=== PATIENT | male | born 1960 | race Caucasian/White ===

== ENCOUNTER → 2023-01-10 09:42 | Outpatient (BNVA) | payer MEDICARE, SELFPAY | PROVIDERS: PCP Family Medicine Adult Medicine; Visit Provider Family Medicine Adult Medicine | DX: E11.69 Type 2 diabetes mellitus with other specified complication (principal); E66.9 Obesity, unspecified; E03.9 Hypothyroidism, unspecified; I10 Essential (primary) hypertension; H61.22 Impacted cerumen, left ear; E78.5 Hyperlipidemia, unspecified; F32.A Depression, unspecified | CPT/HCPCS: 80053; 80061; 83036; 84443; 85025 ==

== ENCOUNTER → 2023-02-16 08:57 | Outpatient (BNVA) | payer MEDICARE, SELFPAY | PROVIDERS: PCP Family Medicine Adult Medicine; Referring Provider Family Medicine Adult Medicine; Visit Provider Internal Medicine | DX: E03.9 Hypothyroidism, unspecified; E11.22 Type 2 diabetes mellitus with diabetic chronic kidney disease; N18.30 Chronic kidney disease, stage 3 unspecified; E11.69 Type 2 diabetes mellitus with other specified complication; E78.5 Hyperlipidemia, unspecified; F32.A Depression, unspecified; M81.0 Age-related osteoporosis without current pathological fracture; E11.40 Type 2 diabetes mellitus with diabetic neuropathy, unspecified; Z79.890 Hormone replacement therapy; Z79.84 Long term (current) use of oral hypoglycemic drugs; Z79.85 Long-term (current) use of injectable non-insulin antidiabetic drugs | CPT/HCPCS: 99204 ==

== ENCOUNTER → 2023-05-12 09:19 | Outpatient (BNVA) | payer MEDICARE, SELFPAY | PROVIDERS: PCP Family Medicine Adult Medicine; Visit Provider Family Medicine Adult Medicine | DX: E11.9 Type 2 diabetes mellitus without complications (principal); E03.9 Hypothyroidism, unspecified | CPT/HCPCS: 80053; 80061; 82043; 83036; 84439; 84443 ==

== ENCOUNTER → 2023-05-18 09:20 | Outpatient (BNVA) | payer MEDICARE, MEDICAID, SELFPAY | PROVIDERS: PCP Family Medicine Adult Medicine; Visit Provider Internal Medicine | DX: E11.22 Type 2 diabetes mellitus with diabetic chronic kidney disease (principal); N18.30 Chronic kidney disease, stage 3 unspecified; E11.65 Type 2 diabetes mellitus with hyperglycemia; E11.69 Type 2 diabetes mellitus with other specified complication; E78.5 Hyperlipidemia, unspecified; E03.9 Hypothyroidism, unspecified; Z79.4 Long term (current) use of insulin; Z79.890 Hormone replacement therapy; Z79.84 Long term (current) use of oral hypoglycemic drugs | CPT/HCPCS: 99214 ==

== ENCOUNTER → 2023-07-24 07:55 | Outpatient (BNVA) | payer MEDICARE, MEDICAID, SELFPAY | PROVIDERS: PCP Family Medicine Adult Medicine; Visit Provider Nurse Practitioner Family | DX: D48.5 Neoplasm of uncertain behavior of skin (principal); Z80.8 Family history of malignant neoplasm of other organs or systems; L57.0 Actinic keratosis; L23.9 Allergic contact dermatitis, unspecified cause | CPT/HCPCS: 11102; 17000; 99203 ==

== ENCOUNTER → 2023-07-31 09:28 | Outpatient (BNVA) | payer MEDICARE, MEDICAID, SELFPAY | PROVIDERS: PCP Family Medicine Adult Medicine; Visit Provider Dermatology | DX: C44.319 Basal cell carcinoma of skin of other parts of face (principal) | CPT/HCPCS: 13132; 17311 ==

== ENCOUNTER → 2023-08-09 11:22 | Outpatient (BNVA) | payer MEDICARE, MEDICAID, SELFPAY | PROVIDERS: PCP Family Medicine Adult Medicine; Visit Provider Dermatology | DX: Z48.02 Encounter for removal of sutures (principal) | CPT/HCPCS: 99212 ==

== ENCOUNTER → 2023-08-28 08:13 | Outpatient (BNVA) | payer MEDICARE, MEDICAID, SELFPAY | PROVIDERS: PCP Family Medicine Adult Medicine; Visit Provider Internal Medicine | DX: E11.65 Type 2 diabetes mellitus with hyperglycemia (principal); E11.69 Type 2 diabetes mellitus with other specified complication; E78.5 Hyperlipidemia, unspecified; E03.9 Hypothyroidism, unspecified | CPT/HCPCS: 80053; 80061; 82043; 83036; 83721; 84439; 84443 ==

== ENCOUNTER → 2023-08-30 09:05 | Outpatient (BNVA) | payer MEDICARE, MEDICAID, SELFPAY | PROVIDERS: PCP Family Medicine Adult Medicine; Visit Provider Internal Medicine | DX: E11.69 Type 2 diabetes mellitus with other specified complication (principal); E66.9 Obesity, unspecified; E11.65 Type 2 diabetes mellitus with hyperglycemia; E11.22 Type 2 diabetes mellitus with diabetic chronic kidney disease; N18.30 Chronic kidney disease, stage 3 unspecified; E78.5 Hyperlipidemia, unspecified; E03.9 Hypothyroidism, unspecified; Z79.890 Hormone replacement therapy; Z79.4 Long term (current) use of insulin; Z79.84 Long term (current) use of oral hypoglycemic drugs; Z68.35 Body mass index [BMI] 35.0-35.9, adult | CPT/HCPCS: 99214 ==

== ENCOUNTER → 2023-11-23 08:20 | Outpatient (BNVA) | payer MEDICARE, MEDICAID, SELFPAY | PROVIDERS: PCP Family Medicine Adult Medicine; Visit Provider Internal Medicine | DX: E03.9 Hypothyroidism, unspecified (principal); E11.65 Type 2 diabetes mellitus with hyperglycemia; E11.22 Type 2 diabetes mellitus with diabetic chronic kidney disease; N18.30 Chronic kidney disease, stage 3 unspecified; E11.69 Type 2 diabetes mellitus with other specified complication; E78.5 Hyperlipidemia, unspecified; E66.9 Obesity, unspecified | CPT/HCPCS: 80053; 80061; 82043; 83036; 83721; 84439; 84443 ==

== ENCOUNTER → 2023-11-30 08:49 | Outpatient (BNVA) | payer MEDICARE, MEDICAID, SELFPAY | PROVIDERS: PCP Family Medicine Adult Medicine; Visit Provider Internal Medicine | DX: E11.69 Type 2 diabetes mellitus with other specified complication (principal); E66.9 Obesity, unspecified; Z68.35 Body mass index [BMI] 35.0-35.9, adult; E11.22 Type 2 diabetes mellitus with diabetic chronic kidney disease; N18.30 Chronic kidney disease, stage 3 unspecified; E03.9 Hypothyroidism, unspecified; E11.65 Type 2 diabetes mellitus with hyperglycemia; E78.5 Hyperlipidemia, unspecified; Z79.4 Long term (current) use of insulin; Z79.84 Long term (current) use of oral hypoglycemic drugs; Z79.890 Hormone replacement therapy | CPT/HCPCS: 99214 ==

== ENCOUNTER → 2023-12-12 11:02 | Outpatient (BNVA) | payer MEDICARE, MEDICAID, SELFPAY | PROVIDERS: PCP Family Medicine Adult Medicine; Visit Provider Nurse Practitioner Family | DX: L57.0 Actinic keratosis (principal); L82.0 Inflamed seborrheic keratosis; L57.8 Other skin changes due to chronic exposure to nonionizing radiation; D22.39 Melanocytic nevi of other parts of face; Z80.8 Family history of malignant neoplasm of other organs or systems | CPT/HCPCS: 17000; 17110; 99213 ==

== ENCOUNTER → 2024-01-16 12:05 | Outpatient (BNVA) | payer MEDICARE, MEDICAID, SELFPAY | PROVIDERS: PCP Family Medicine Adult Medicine; Visit Provider Internal Medicine | DX: E11.22 Type 2 diabetes mellitus with diabetic chronic kidney disease (principal); N18.30 Chronic kidney disease, stage 3 unspecified; E11.65 Type 2 diabetes mellitus with hyperglycemia; E11.69 Type 2 diabetes mellitus with other specified complication; E78.5 Hyperlipidemia, unspecified; E03.9 Hypothyroidism, unspecified; E66.9 Obesity, unspecified; Z68.34 Body mass index [BMI] 34.0-34.9, adult; Z79.4 Long term (current) use of insulin; Z79.890 Hormone replacement therapy; Z79.84 Long term (current) use of oral hypoglycemic drugs | CPT/HCPCS: 99214 ==

== ENCOUNTER → 2024-04-12 08:11 | Outpatient (BNVA) | payer MEDICARE, SELFPAY | PROVIDERS: PCP Family Medicine; Visit Provider Internal Medicine | DX: E11.65 Type 2 diabetes mellitus with hyperglycemia (principal); E66.9 Obesity, unspecified; E11.69 Type 2 diabetes mellitus with other specified complication; E03.9 Hypothyroidism, unspecified; E78.5 Hyperlipidemia, unspecified | CPT/HCPCS: 80053; 80061; 82043; 83036; 84439; 84443 ==

== ENCOUNTER → 2024-04-18 11:37 | Outpatient (BNVA) | payer MEDICARE, SELFPAY | PROVIDERS: PCP Family Medicine; Visit Provider Internal Medicine | DX: E11.69 Type 2 diabetes mellitus with other specified complication (principal); E66.9 Obesity, unspecified; E03.9 Hypothyroidism, unspecified; E11.22 Type 2 diabetes mellitus with diabetic chronic kidney disease; N18.30 Chronic kidney disease, stage 3 unspecified; E11.65 Type 2 diabetes mellitus with hyperglycemia; E78.5 Hyperlipidemia, unspecified | CPT/HCPCS: 99214 ==

== ENCOUNTER → 2024-06-11 11:20 | Outpatient (BNVA) | payer MEDICARE, SELFPAY | PROVIDERS: PCP Family Medicine; Visit Provider Nurse Practitioner Family | DX: L57.8 Other skin changes due to chronic exposure to nonionizing radiation (principal); D22.39 Melanocytic nevi of other parts of face; L21.8 Other seborrheic dermatitis; S50.912A Unspecified superficial injury of left forearm, initial encounter; X58.XXXA Exposure to other specified factors, initial encounter; Z08 Encounter for follow-up examination after completed treatment for malignant neoplasm; Z85.828 Personal history of other malignant neoplasm of skin; L57.0 Actinic keratosis | CPT/HCPCS: 17000; 99214 ==

== ENCOUNTER → 2024-07-11 08:15 | Outpatient (BNVA) | payer MEDICARE, SELFPAY | PROVIDERS: PCP Family Medicine; Visit Provider Family Medicine | DX: E11.22 Type 2 diabetes mellitus with diabetic chronic kidney disease (principal); N18.30 Chronic kidney disease, stage 3 unspecified; E11.69 Type 2 diabetes mellitus with other specified complication; E66.9 Obesity, unspecified; E03.9 Hypothyroidism, unspecified | CPT/HCPCS: 80053; 80061; 82043; 83036; 84439; 84443 ==

== ENCOUNTER → 2024-07-19 11:13 | Outpatient (BNVA) | payer MEDICARE, MEDICAID, SELFPAY | PROVIDERS: PCP Family Medicine; Visit Provider Internal Medicine | DX: E11.69 Type 2 diabetes mellitus with other specified complication (principal); E11.22 Type 2 diabetes mellitus with diabetic chronic kidney disease; E78.5 Hyperlipidemia, unspecified; E03.9 Hypothyroidism, unspecified; E11.65 Type 2 diabetes mellitus with hyperglycemia | CPT/HCPCS: 99214 ==

== ENCOUNTER → 2024-07-24 08:15 | Outpatient (BNVA) | payer MEDICARE, MEDICAID, SELFPAY | PROVIDERS: PCP Family Medicine; Visit Provider Internal Medicine | DX: E11.69 Type 2 diabetes mellitus with other specified complication (principal); E66.9 Obesity, unspecified | CPT/HCPCS: 82951; 84681; 86337; 86341 ==

== ENCOUNTER 2024-09-05 11:51 | Outpatient (CLI) | payer MEDICARE, SELFPAY ==
--- NOTE | 2024-09-05 12:02 | XR_ITS ---
WS: [email or web address] XR chest 2V* [id number] REASON FOR EXAM: chronic cough FINDINGS: No examination for comparison. Moderate tortuosity and ectasia of the thoracic aorta. Normal heart size. Calcified granulomatous disease in both hemithoraces. Eventration of the right hemidiaphragm. Chronic appearing interstitial lung opacities in the right lower lung with small lucencies. No definite acute pulmonary parenchymal or pleural abnormality. Mild levoscoliosis and moderate degenerative spondylosis of the mid thoracic spine. XR/XR chest 2V* [id number] IMPRESSION: Chronic appearing abnormality in the right lower lung which potentially could r epresent chronic bronchiectasis. No definite acute abnormality.
== END 2024-09-05 11:52 | disposition home or self-care (01) ==
PROVIDERS: PCP Family Medicine; Visit Provider Family Medicine
DX: R06.02 Shortness of breath (principal); R05.3 Chronic cough; I77.810 Thoracic aortic ectasia; D71 Functional disorders of polymorphonuclear neutrophils
CPT/HCPCS: 71046

== ENCOUNTER 2024-09-11 13:40 | Outpatient (CLI) | payer MEDICARE, SELFPAY ==
--- NOTE | 2024-09-11 14:00 | CT_ITS ---
WS: [id number] CT chest wo con [id number] HISTORY: bronchiectasis TECHNIQUE: Axial imaging performed through the thorax. Coronal and sagittal reformats are submitted. All CT scans at [facility] use at least one of these dose optimization techniques: automated exposure control; mA and/or kV adjustment per patient size (includes targeted exams where dose is matched to clinical indication); or iterative reconstruction. CONTRAST: None DLP: 713.83 mGy.cm COMPARISON: Chest radiograph 09/05/2024 Lungs and central airway: Lungs are clear. No pneumonia. No bronchiectasis at the RIGHT lung base. No pulmonary mass or nodule. Linear atelectasis in the RIGHT middle lobe. Pleura: Normal. No pleural effusion. Heart and pericardium: Normal size heart with no pericardial effusion. Mediastinum and yomi: No mediastinum or hilar adenopathy. Vessels: Normal size aorta. Pulmonary artery is slightly dilated. Chest wall and lower neck: No soft tissue masses. Upper abdomen: Small hiatal hernia. Mildly cirrhotic appearance of the liver. Benign granuloma RIGHT lobe of the liver. Numerous splenic varices are noted. There is visualized gallbladder is negative. Osseous structures: Deformity superior sternal body from a prior fracture. Schmorl's nodes defects at T12 and L1. Remote healed LEFT eighth lateral rib fracture. CT/CT chest wo con [id number] IMPRESSION: 1. No pulmonary mass or pneumonia. 2. No bronchiectasis at the RIGHT lung base as suggested on the recent chest r adiograph. 3. Mild pulmonary hypertension. 4. Splenic varices. Early cirrhotic appearance of the liver. 5. Remote healed sternal fracture.
== END 2024-09-11 13:41 | disposition home or self-care (01) ==
LOC: RAD 13:46
PROVIDERS: PCP Family Medicine; Visit Provider Family Medicine
DX: Z03.89 Encounter for observation for other suspected diseases and conditions ruled out (principal); I27.20 Pulmonary hypertension, unspecified
CPT/HCPCS: 71250

== ENCOUNTER → 2024-10-07 08:24 | Outpatient (BNVA) | payer MEDICARE, SELFPAY | PROVIDERS: PCP Family Medicine; Visit Provider Internal Medicine | DX: E11.22 Type 2 diabetes mellitus with diabetic chronic kidney disease (principal); N18.30 Chronic kidney disease, stage 3 unspecified; E11.69 Type 2 diabetes mellitus with other specified complication; E78.5 Hyperlipidemia, unspecified; E03.9 Hypothyroidism, unspecified | CPT/HCPCS: 80053; 80061; 82043; 83036 ==

== ENCOUNTER → 2024-10-11 11:17 | Outpatient (BNVA) | payer MEDICARE, SELFPAY | PROVIDERS: PCP Family Medicine; Visit Provider Internal Medicine | DX: E11.22 Type 2 diabetes mellitus with diabetic chronic kidney disease (principal); N18.30 Chronic kidney disease, stage 3 unspecified; E11.65 Type 2 diabetes mellitus with hyperglycemia; E11.69 Type 2 diabetes mellitus with other specified complication; E78.5 Hyperlipidemia, unspecified; E03.9 Hypothyroidism, unspecified | CPT/HCPCS: 99214 ==

== ENCOUNTER 2024-12-18 08:00 | Emergency (ER) | payer MEDICARE, MEDICAID, SELFPAY ==
--- OUTSIDE RECORDS SUMMARY | 2014-07-16 19:00 | XMS_ITS | Continuity of Care Document ---
Author Organization [facility] Address [address], [place] [address] Phone Care Team Providers Care Homemaker Companion Name Role Phone Celio Sen MD Unavailable Unavailable Procedures Procedure Date [facility] Inter Advance Directives Directive Yes / No Effective Date File Name No Information Encounters Encounter Description Practice Location Reason(s) For Visit Diagnoses Date Provider Providers Copied on Encounter [facility], [address], [place], [place], [place], [id number], tel:[phone] [facility] ER No Information [address] [facility]. [address], [place], [place], [place], [id number] , . tel: [phone] Referring Provider: Priscilla Simons, [address] [place], [address]. tel:[phone] Family History Family Member Type Diagnosis Age At Onset No Information Payers Payer name Insurance type Covered republican ID glenyskrunal silverio(s) [employer] BL [id number] Social History Type Description Quantity Date Captured Comments Sex Male Smoking Status No Information Chief Complaint And Reason For Visit No Information Reason For Referral Reason For Referral No Information History Of Present Illness Encounter Date Complaint History Of Prese nt Illness No Information Functional Status Date Functional Assessmen t No Information Instructions Date Instruction Additional Infor mation No Information Assessments Type Assessment Date No Information Patient Care Teams Name Effective Dates (start - stop) Status Members No Information
--- OUTSIDE RECORDS SUMMARY | 2022-02-08 10:55 | XMS_ITS | Continuity of Care Document ---
Author Organization [facility] Address [address] [place] [address] Phone Care Team Providers Care Bolt Maker Name Role Phone Unavailable Unavailable Unavailable Allergies, Adverse Reactions, Alerts Substance Reaction Status Criticality vancomycin Rash Active No Information Penicillins Rash Active No Information Medications Medication Instructions Dosage Effective Dates (start - stop) Status Comments No Drug Therapy Prescribed Procedures Procedure Date panoramic radiograph only Caries Risk Asssessment, High Risk Office Visit For Observation Advance Directives Directive Yes / No Effective Date File Name No Information Encounters Encounter Description Practice Location Reason(s) For Visit Diagnoses Date Provider Providers Copied on [facility], [address], [place], [id number], tel:[phone] [facility] No Information No Information [facility], [facility] [address], [place], [id number], tel:[phone] [facility] [address] DNT - Encounter for other specified special examinations No Information Family History Family Member Type Diagnosis Age At Onset No Information Payers Payer name Insurance type Covered constitution party ID Authoriza tion(s) O/P DENTI-KAUSHAL [id number] Social History Type Description Quantity Date Captured Comments Alcohol Use Details Unknown Caffeine Use Details Unknown Tobacco Use Status No Information Smoking Status No Information Sex Male Chief Complaint And Reason For Visit No Information Reason For Referral Reason For Referral No Information Plan Of Treatment Date Type Action Status Referral Ordered: Referrals: Dentistry - Prosthodontics. Evaluate and treat ordered History Of Present Illness Encounter Date Complaint History Of Prese nt Illness No Information Functional Status Date Functional Assessmen t No Information Medications Administered Medication Instructions Dosage Effective Dates (start - stop) Status Comments No Drug Therapy Prescribed Instructions Date Instruction Additional Infor mation No Information Assessments Type Assessment Date No Information Patient Care Teams Name Effective Dates (start - stop) Status Members No Information
[2024-12-18 08:19] VITALS: BP 116/70; PULSE 103; RESP 20; TEMP 37.1; O2SAT 92; BMI 36.6
--- NOTE | 2024-12-18 08:30 | XR_ITS ---
WS: [email or web address] Exam: XR shoulder LT min 2V* [id number] Date/Time of Exam: 12/18/2024 8:30 AM Reason For Exam: Trauma DLP: There is an oblique lucent line in the region of the upper humeral metaphysis. Hairline fracture not excluded but this is more than likely an artifact secondary to overlying myofascial structures. The remainder of the shoulder is intact. Mild DJD at the glenohumeral joint and the AC joint. IMPRESSION1. Oblique lucent defect in the upper metaphysis of the humerus. Hairline fracture could have this appearance however this is most likely artifact. 2. Mild degenerative changes.
--- NOTE | 2024-12-18 08:30 | XR_ITS ---
WS: [email or web address] Exam: [place] [id number] Date/Time of Exam: 12/18/2024 8:30 AM Reason For Exam: Trauma DLP: No obvious fracture. Articular relationships are intact at the shoulder. Normal soft tissues. XR/[place] [id number] IMPRESSION: 1. No acute fractures.
--- NOTE | 2024-12-18 09:55 | CT_ITS ---
WS: [id number] CT LEFT SHOULDER, NONCONTRAST HISTORY: Trauma Technique: All CT scans at [facility] use at least one of these dose optimization techniques: automated exposure control; mA and/or kV adjustment per patient size (includes targeted exams where dose is matched to clinical indication); or iterative reconstruction. DLP: 499.01 mGy.cm COMPARISON: Radiograph 12/18/2024 Moderate AC joint narrowing. Normal position of the humeral head within the glenoid. No fracture identified. Increased density along the supraspinatus tendon is probably from calcific tendinitis. Visualized ribs are normal. Facet joint arthritis in the visualized LEFT cervical spine. Visualized LEFT lung is clear. CT/CT shoulder LT wo con* [id number] IMPRESSION: 1. No LEFT shoulder fracture. 2. Mild calcific tendinitis along the supraspinatus tendon.
--- NOTE | 2024-12-18 09:55 | XR_ITS ---
WS: [email or web address] Exam: XR elbow LT min 3V* [id number] Date/Time of Exam: 12/18/2024 9:55 AM Reason For Exam: Trauma DLP: No acute fractures. The joints are relatively well-maintained. Unremarkable soft tissues. No joint effusion. XR/XR elbow LT min 3V* [id number] IMPRESSION: 1. No fracture or other significant finding.
--- NOTE | 2024-12-18 10:44 | ED_ITS ---
HPI - Extremity Problem General: Chief complaint: Extremity Injury, Upper Stated complaint: Fall- L arm hurt cant lift arm Time Seen by Provider: 12/18/24 09:35 History of Present Illness: 64-year-old male presents emergency room he has frequent falls he bent over trying to pick something up lost his balance fell forward he landed on an outstretched left arm has proximal humerus/shoulder pain. He fell last night pain was not any better this morning so he returns also complaining some pain in his elbow did not strike his head did not lose conscious denies any other injuries Associated symptoms: Deny chest pain, fever(s) or rash Related Data Previous Rx's ?Medication ?Instructions ?Recorded clobetasol 0.05 % topical cream 1 applic topical BID 2 weeks #120 06/13/23 grams pen needle, diabetic 32 gauge x #100 ea 04/02/24 (Pentips Pen Needle) amitriptyline 75 mg tablet 75 mg PO DAILY depression # 30 tabs 06/03/24 aripiprazole 10 mg tablet 10 mg PO DAILY #30 tabs 05/21 06/14 buspirone 15 mg tablet 15 mg PO BID #60 tabs mirtazapine 45 mg tablet 45 mg PO .qhs depression #30 tabs 06/03/24 omeprazole 40 mg capsule,delayed 40 mg PO DAILY PRN ac id reflux #90 07/08/24 release caps insulin glargine 100 unit/mL (3 96 unit (0.96 mL) SUBC UT DAILY 90 08/06/24 mL) subcutaneous pen (Lantus days #90 mL Solostar U-100 Insulin) levofloxacin 750 mg tablet 750 mg PO DAILY #7 tabs blood-glucose sensor (FreeStyle #2 ea 09/20/24 Elida 2 Plus Sensor device) gabapentin 600 mg tablet 600 mg PO TID neuropathy #90 tabs 11/04/24 insulin aspart U-100 100 unit/mL 20 unit (0.2 mL) SUBC UT TID #15 mL 11/12/24 (3 mL) subcutaneous pen atorvastatin 10 mg tablet See Rx Instructions .Route 0 11/14/24 .COMPLEX #90 tabs indomethacin 50 mg capsule 50 mg PO TID 7 days #21 cap s 11/14/24 albuterol sulfate 90 mcg/actuation 1 inh inhalation QI D PRN shortness 10/01/25 aerosol inhaler of breath or wheezing #8.5 g cristobal COVID vac 25-26(12up)(Pfi)(PF) 30 0.3 ml IM ONCE #0.3 mL 11/21/24 mcg/0.3 mL IM syringe budesonide-formoterol HFA 80 2 puff inhalation BID #10 .2 grams 11/25/24 mcg-4.5 mcg/actuation aerosol inhaler (Symbicort) empagliflozin 25 mg tablet See Rx Instructions .Route 11/25/24 (Jardiance) .COMPLEX #90 tabs metformin 500 mg tablet See Rx Instructions .Route 1 .COMPLEX #120 tabs levothyroxine 75 mcg tablet See Rx Instructions .Route 12/12/24 .COMPLEX #45 tabs tirzepatide 10 mg/0.5 mL See Rx Instructions .Route 1 subcutaneous pen injector .COMPLEX #4 mL (Mounjaro) bupropion HCl 300 mg 24 hr tablet, 300 mg PO QAM #30 t abs 12/16/24 extended release (Wellbutrin XL) tramadol 50 mg tablet 50 mg PO Q8H PRN pain #10 ta bs 12/18/24 Allergies Allergy/AdvReac Type Severity Reaction Status Date / Time Penicillins Allergy itch and Verified 12/16/24 11:06 rash vancomycin Allergy rash Verified 12/16/24 11:06 Review of Systems Const: Denies: fever(s) or chills Card: Denies: chest pain Resp: Denies: dyspnea GI: Denies: abdominal pain : Denies: dysuria, urinary frequency or urinary urgency Musc: Denies: neck pain or back pain Skin/Breast: Denies: rash PFSH ED PFSH: Medical History Bronchiectasis Psychiatric care Diabetic neuropathy CKD stage 3b, GFR 30-44 ml/min Obesity (BMI 35.0-39.9 without comorbidity) Basal cell carcinoma (BCC) of face Psoriasis-like skin disease Chronic kidney disease, stage 3, mod decreased GFR CKD stage 3 due to type 2 diabetes mellitus 01/10/2023 creatinine 1.2 and GFR 41 Hypertension Insomnia Chronic GERD Dyslipidemia associated with type 2 diabetes mellitus Hypothyroidism Chronic bilateral low back pain with bilateral sciatica Diabetes mellitus type 2 in obese Anxiety Depression Neuropathy Arthritis Nerve damage Gout Asthma Lymph node enlargement Compression fracture Colitis Surgical History History of back surgery Family History Father Cancer Lung cancer Heart attack Mother Heart attack Congestive heart failure (CHF) Social History Smoking and tobacco/nicotine status: never used tobacco/nicotine Alcohol intake: current Alcohol intake frequency: holidays/special occasions only Alcohol type: hard liquor Substance/Drug Use: current Substance/Drug use frequency: few times a week Physical Exam Const: GENERAL APPEARANCE: cooperative ORIENTATION/CONSCIOUSNESS: Yes awake, Yes oriented to person, Yes oriented to place and Yes oriented to time HENMT: COMMON NORMALS: normocephalic, atraumatic and hearing grossly normal bilaterally HEAD & SCALP: normocephalic and atraumatic Resp: COMMON NORMALS: normal respiratory effort, No retractions, No use of accessory muscles and clear to auscultation bilaterally AUSCULTATION: clear to auscultation bilaterally Cardio: COMMON NORMALS: regular rate, regular rhythm and No murmurs present (Cardio) RATE: regular rate RHYTHM: regular rhythm GI: COMMON NORMALS: Soft to palpation and No hepatosplenomegaly present AUSCULTATION: Yes normoactive bowel sounds PALPATION: Yes Soft to palpation, No Tenderness to palpation present (GI), No Guarding due to palpation present (GI) and Yes No hepatosplenomegaly present Neuro: SENSORIUM/ORIENTATION: Yes oriented to person, Yes oriented to place and Yes oriented to time Skin: COMMON NORMALS: no rashes or lesions noted GENERAL SKIN EXAM: no rashes or lesions noted Course Vital Signs: Vital signs: Vital Signs Temperature 98.8 F 12/18/24 08:19 Pulse Rate 94 12/18/24 11:59 Respiratory Rate 20 H 12/18/24 08:19 Blood Pressure 146/77 12/18/24 11:59 Pulse Oximetry 97 12/18/24 11:59 Oxygen Delivery Me thod Room Air 12/18/24 08:19 MDM - Extremity (Nontraumatic) Medical Decision Making Plain films questionable for hairline fracture of the proximal humerus CT done to confirm per radiology recommendations no acute fractures noted on the CT no fractures noted in the elbow over the humerus will discharge patient home arm sling follow-up with primary care if not improving can use tramadol as needed continue indomethacin return for further problems. Lab Data Radiology Impressions Humerus X-Ray 12/18/24 08:30 IMPRESSION: 1. No acute fractures. Elbow X-Ray 12/18/24 09:55 IMPRESSION: 1. No fracture or other significant finding. Shoulder CT 12/18/24 09:55 IMPRESSION: 1. No LEFT shoulder fracture. 2. Mild calcific tendinitis along the supraspinatus tendon. All radiology interpretation(s) finalized by discharge Discharge Plan Discharge Patient Disposition: Home Clinical Impression: Sprain of left shoulder Qualifiers: Encounter type: initial encounter Shoulder sprain type: unspecified sprain Qualified Code(s): S43.402A - Unspecified sprain of left shoulder joint, initial encounter Condition: Stable Prescriptions: New tramadol 50 mg tablet 50 mg PO Q8H PRN (Reason: pain) Qty: 10 0RF No Action indomethacin 50 mg capsule 50 mg PO TID 7 Days Qty: 21 3RF Rx Instructions: administer with food or milk buspirone 15 mg tablet 15 mg PO BID Qty: 60 11RF aripiprazole 10 mg tablet 10 mg PO DAILY Qty: 30 11RF mirtazapine 45 mg tablet 45 mg PO .qhs Qty: 30 11RF amitriptyline 75 mg tablet 75 mg PO DAILY Qty: 30 11RF levofloxacin 750 mg tablet 750 mg PO DAILY Qty: 7 0RF bupropion HCl [Wellbutrin XL] 300 mg tablet extended release 24 hr 300 mg PO QAM Qty: 30 2RF clobetasol 0.05 % cream 1 applic topical BID 14 Days Qty: 120 0RF (DME) pen needle, diabetic [Pentips Pen Needle] 32 gauge x 5/32 needle See Rx Instructions .ROUTE .COMPLEX Qty: 100 0RF Dose Instruction: USE DIRECTED Rx Instructions: USE DIRECTED omeprazole 40 mg capsule,delayed release(DR/EC) 40 mg PO DAILY PRN (Reason: acid reflux) Qty: 90 1RF insulin glargine [Lantus Solostar U-100 Insulin] 100 unit/mL (3 mL) insulin p en 96 unit SUBCUT DAILY 90 Days Qty: 90 1RF (DME) FreeStyle Elida 2 Plus Sensor Device See Rx Instructions .Route Qty: 2 3RF Rx Instructions: As directed gabapentin 600 mg tablet 600 mg PO TID Qty: 90 3RF insulin aspart U-100 100 unit/mL (3 mL) insulin pen 20 unit SUBCUT TID Qty: 15 4RF atorvastatin 10 mg tablet See Rx Instructions .ROUTE .COMPLEX Qty: 90 0RF Dose Instruction: TAKE 1 TABLET BY MOUTH ONCE DAILY FOR CHOLESTEROL Rx Instructions: TAKE 1 TABLET BY MOUTH ONCE DAILY FOR CHOLESTEROL albuterol sulfate 90 mcg/actuation HFA aerosol inhaler 1 inh inhalation QID PRN (Reason: shortness of breath or wheezing) Qty: 8.5 1RF COVID vac 25-26(12up)(Pfi)(PF) 30 mcg/0.3 mL syringe 0.3 ml IM ONCE Qty: 0.3 0RF budesonide-formoterol [Symbicort] 80-4.5 mcg/actuation HFA aerosol inhaler 2 puff inhalation BID Qty: 10.2 0RF Jardiance 25 mg tablet See Rx Instructions .ROUTE .COMPLEX Qty: 90 0RF Dose Instruction: TAKE 1 TABLET BY MOUTH IN THE MORNING FOR DIABETES Rx Instructions: TAKE 1 TABLET BY MOUTH IN THE MORNING FOR DIABETES metformin 500 mg tablet See Rx Instructions .ROUTE .COMPLEX Qty: 120 3RF Dose Instruction: Take 1 tablet by mouth twice daily Rx Instructions: Take 1 tablet by mouth twice daily Mounjaro 10 mg/0.5 mL pen injector See Rx Instructions .ROUTE .COMPLEX Qty: 4 0RF Dose Instruction: INJECT 10MG SUB-Q ONCE WEEKLY Rx Instructions: INJECT 10MG SUB-Q ONCE WEEKLY levothyroxine 75 mcg tablet See Rx Instructions .ROUTE .COMPLEX Qty: 45 0RF Dose Instruction: Take 1/2 (one-half) tablet by mouth once daily Rx Instructions: Take 1/2 (one-half) tablet by mouth once daily Discharge Orders: Discharge ED (Routine); Ordered 12/18/24 Ordered By: Gonzalez Rosario Referrals: Edwin Rowe MD [Primary Care Provider, Family Practice] Discharge Diet: Usual diet Discharge Activity: Resume usual activity Patient Instructions: Opioid Safety, Pain Management, Patient Portal & Narendra Instructions Activity Restrictions/Additional Instructions: Thank you for choosing [facility] for your healthcare needs today. It is very important that you follow up as instructed or that you return to the Emergency Department should you have concerns or if your condition changes or worsens in any way. Emergency department visits are focused on emergent conditions, in some cases you may require further evaluation on an outpatient basis. You were seen in the emergency room after a fall. X-ray and CT shows no fractures. Suspect you sprained the wrist and elbow continue to take your indomethacin you can also use tramadol as needed. Will place you in a sling and have you follow-up with orthopedics within the next week. Avoid use of the left arm until released. (Please note that included in your discharge packet is information concerning opioid safety and pain management. This information is given to all patients were discharged from the ER regardless of their discharge diagnosis or the medicines they usually take or are prescribed.) Print Language: Solomon Islander Coding Level of Care Code ED Senior Education Specialist for Francisco Javier Hernadez
[2024-12-18 11:58] VITALS: BP 146/77; PULSE 92; O2SAT 97
[2024-12-18 11:59] VITALS: BP 146/77; PULSE 94; O2SAT 97
== END 2024-12-18 12:02 | disposition home or self-care (01) ==
PROVIDERS: Emergency Provider Family Medicine; PCP Family Medicine
DX: S43.402A Unspecified sprain of left shoulder joint, initial encounter (principal); Z79.4 Long term (current) use of insulin; Z79.84 Long term (current) use of oral hypoglycemic drugs; E78.5 Hyperlipidemia, unspecified; E11.22 Type 2 diabetes mellitus with diabetic chronic kidney disease; I12.9 Hypertensive chronic kidney disease with stage 1 through stage 4 chronic kidney disease, or unspecified chronic kidney disease; N18.32 Chronic kidney disease, stage 3b; Z85.828 Personal history of other malignant neoplasm of skin; W19.XXXA Unspecified fall, initial encounter
CPT/HCPCS: 73030; 73060; 73080; 73200; 99284; A4565

== ENCOUNTER → 2025-01-09 08:13 | Outpatient (BNVA) | payer MEDICARE, SELFPAY | PROVIDERS: PCP Family Medicine; Visit Provider Internal Medicine | DX: E11.69 Type 2 diabetes mellitus with other specified complication (principal); E66.9 Obesity, unspecified | CPT/HCPCS: 86337; 86341 ==

== ENCOUNTER 2025-01-25 11:24 | Emergency (ER) | payer MEDICARE, SELFPAY ==
[2025-01-25 11:26] VITALS: BP 105/63; PULSE 100; RESP 19; TEMP 36.8; O2SAT 92; BMI 36.9
--- NOTE | 2025-01-25 11:35 | ECG_ITS ---
[facility]25[facility]25 Pat Name: Benson Choi Department: Room: Gender: Male Steward/Stewardess Second: : 1960 Requested By: Raymond Rascon Order Number: [id number] Svitlana MD: TAMMIE SUMNER Measurements Intervals [place] Rate: 96 P: -6 FL: 158 QRS: 12 QRSD: 99 T: 37 QT: 372 QTc: 470 Interpretive Statements SINUS RHYTHM No previous ECG available for comparison Electronically Signed On 01-25-2025 18:38:48 MANAGER SEMICONDUCTOR by TAMMIE SUMNER [email or web address] [id number]
--- NOTE | 2025-01-25 11:47 | XRR_ITS ---
PROCEDURE INFORMATION: Exam: XR Chest Exam date and time: 01/25/2025 11:57 AM Age: 64 years old Clinical indication: Dyspnea; Additional info: Weakness TECHNIQUE: Imaging protocol: Radiologic exam of the chest. Views: 1 view. COMPARISON: CT chest wo con [id number] 09/11/2024 2:03 PM; chest x-ray, 09/05/2024 FINDINGS: Lungs: Unremarkable. No consolidation. Pleural spaces: Unremarkable. No pleural effusion. No pneumothorax. Heart/Mediastinum: Unremarkable. No cardiomegaly. Vasculature: Stable mild aortic tortuosity without suspected aneurysm. Bones/joints: Unremarkable. XR/XR chest 1V portable [id number] IMPRESSION: Stable chest. No acute cardiopulmonary pathology
--- NOTE | 2025-01-25 11:53 | CTR_ITS ---
PROCEDURE INFORMATION: Exam: CT Head Without Contrast Exam date and time: 01/25/2025 11:57 AM Age: 64 years old Clinical indication: Injury or trauma; Blunt trauma (contusions or hematomas); Loss of consciousness unknown; Frequent fall over the past 2 years TECHNIQUE: Imaging protocol: Computed tomography of the head without contrast. Radiation optimization: All CT scans at this facility use at least one of these dose optimization techniques: automated exposure control; mA and/or kV adjustment per patient size (includes targeted exams where dose is matched to clinical indication); or iterative reconstruction. COMPARISON: No relevant prior studies available. RADIATION DOSE METRICS: Total DLP (mGy-cm): 1170.58 FINDINGS: Brain: Normal. No hemorrhage. Unremarkable white matter. No mass effect. Cerebral ventricles: No ventriculomegaly. Paranasal sinuses: Visualized sinuses are unremarkable. No fluid levels. Mastoid air cells: Visualized mastoid air cells are well aerated. Orbital cavities: Prior cataract surgery. Bones: Unremarkable. No acute fracture. Soft tissues: Unremarkable. CT/CT head wo con* [id number] IMPRESSION: No evidence of acute intracranial pathology.
--- NOTE | 2025-01-25 11:54 | W.ED.DIZZY ---
HPI - Dizziness General: Chief Complaint: Dizziness Stated Complaint: Dizzy Weakness in both legs Falling 2 Months Time Seen by Provider: 01/25/25 11:51 Source: patient Mode of arrival: ambulatory Limitations: no limitations History of Present Illness: HPI Narrative: 64-year-old male states to me he has been having generalized weakness has been going on for years. He states over the last 2 months he has had more frequent falls than typical states he will have a fall 2-3 times a week. He states that he uses a cane but has been think about using a walker states he just feels weak in both of his legs denies any headache denies hitting his head denies any slurred speech. Related Data Previous Rx's ?Medication ?Instructions ?Recorded clobetasol 0.05 % topical cream 1 applic topical BID 2 weeks #120 06/13/23 grams pen needle, diabetic 32 gauge x #100 ea 04/02/24 (Pentips Pen Needle) amitriptyline 75 mg tablet 75 mg PO DAILY depression #30 tabs 06/03/24 aripiprazole 10 mg tablet 10 mg PO DAILY #30 tabs 06/03/24 buspirone 15 mg tablet 15 mg PO BID #60 tabs 06/03/24 mirtazapine 45 mg tablet 45 mg PO .qhs depression #30 tabs 06/03/24 insulin glargine 100 unit/mL (3 96 unit (0.96 mL) SUBCUT DAILY 90 08/06/24 mL) subcutaneous pen (Lantus days #90 mL Solostar U-100 Insulin) levofloxacin 750 mg tablet 750 mg PO DAILY #7 tabs 09/05/24 blood-glucose sensor (FreeStyle #2 ea 09/20/24 Elida 2 Plus Sensor device) gabapentin 600 mg tablet 600 mg PO TID neuropathy #90 tabs 11/04/24 insulin aspart U-100 100 unit/mL 20 unit (0.2 mL) SUBCUT TID #15 mL 11/12/24 (3 mL) subcutaneous pen atorvastatin 10 mg tablet See Rx Instructions .Route 11/14/24 .COMPLEX #90 tabs indomethacin 50 mg capsule 50 mg PO TID 7 days #21 caps 11/14/24 albuterol sulfate 90 mcg/actuation 1 inh inhalation QID PRN shortness 11/20/24 aerosol inhaler of breath or wheezing #8.5 grams COVID vac 25-26(12up)(Pfi)(PF) 30 0.3 ml IM ONCE #0.3 mL 11/21/24 mcg/0.3 mL IM syringe empagliflozin 25 mg tablet See Rx Instructions .Route 11/25/24 (Jardiance) .COMPLEX #90 tabs metformin 500 mg tablet See Rx Instructions .Route 11/25/24 .COMPLEX #120 tabs levothyroxine 75 mcg tablet See Rx Instructions .Route 12/12/24 .COMPLEX #45 tabs bupropion HCl 300 mg 24 hr tablet, 300 mg PO QAM #30 tabs 12/16/24 extended release (Wellbutrin XL) tramadol 50 mg tablet 50 mg PO Q8H PRN pain #10 tabs 12/18/24 budesonide-formoterol HFA 80 2 puff inhalation BID #10.2 grams 12/23/24 mcg-4.5 mcg/actuation aerosol inhaler (Symbicort) omeprazole 40 mg capsule,delayed 40 mg PO DAILY PRN acid reflux #90 01/02/25 release caps tirzepatide 10 mg/0.5 mL See Rx Instructions .Route 01/03/25 subcutaneous pen injector .COMPLEX #4 mL (Mounjaro) insulin syringe,safety needle 1 mL #100 ea 01/07/25 31 gauge x 15/64 (BD SafetyGlide Insulin Syringe) Allergies Allergy/AdvReac Type Severity Reaction Status Date / Time Penicillins Allergy itch and Verified 01/25/25 11:47 rash vancomycin Allergy rash Verified 01/25/25 11:47 [facility] PFSH: Medical History (Updated 01/25/25 @ 13:20 by Raymond Rascon MD) Bronchiectasis Psychiatric care Diabetic neuropathy CKD stage 3b, GFR 30-44 ml/min Obesity (BMI 35.0-39.9 without comorbidity) Basal cell carcinoma (BCC) of face Psoriasis-like skin disease Chronic kidney disease, stage 3, mod decreased GFR CKD stage 3 due to type 2 diabetes mellitus 01/10/2023 creatinine 1.2 and GFR 41 Hypertension Insomnia Chronic GERD Dyslipidemia associated with type 2 diabetes mellitus Hypothyroidism Chronic bilateral low back pain with bilateral sciatica Diabetes mellitus type 2 in obese Anxiety Depression Neuropathy Arthritis Nerve damage Gout Asthma Lymph node enlargement Compression fracture Colitis Surgical History History of back surgery Family History Father Cancer Lung cancer Heart attack Mother Heart attack Congestive heart failure (CHF) Social History Smoking and tobacco/nicotine status: never used tobacco/nicotine Alcohol intake: current Alcohol intake frequency: holidays/special occasions only Alcohol type: hard liquor Substance/Drug Use: current Substance/Drug use frequency: few times a week Physical Exam Const: COMMON NORMALS: patient oriented x3 HENMT: COMMON NORMALS: normocephalic and atraumatic HEAD & SCALP: normocephalic and atraumatic Eye: COMMON NORMALS: Equal, round and reactive pupils present and EOMs intact bilaterally PUPIL: Yes Equal, round and reactive pupils present Neck/C-Spine: COMMON NORMALS: full ROM and supple Chest: COMMONS NORMALS: normal inspection of the chest and normal palpation of entire chest wall Resp: COMMON NORMALS: normal respiratory effort, No retractions, No use of accessory muscles and clear to auscultation bilaterally AUSCULTATION: clear to auscultation bilaterally Cardio: COMMON NORMALS: regular rate, regular rhythm and No murmurs present (Cardio) RATE: regular rate RHYTHM: regular rhythm GI: COMMON NORMALS: Normal to inspection, nondistended, normoactive bowel sounds present, Soft to palpation, non-tender and no masses PALPATION: Yes Soft to palpation Extremity: COMMON NORMALS: normal to inspection and full ROM Neuro: COMMON NORMALS: patient oriented x3, moves all extremities and no focal motor deficits Psych: COMMON NORMALS: mental status grossly normal, Normal thought process present and cooperative THOUGHT PROCESS: Normal thought process present Skin: COMMON NORMALS: no rashes or lesions noted and no wounds GENERAL SKIN EXAM: no rashes or lesions noted Course Vital Signs: Vital signs: Vital Signs Temperature 98.3 F 01/25/25 11:26 Pulse Rate 88 01/25/25 13:03 Respiratory Rate 16 01/25/25 13:03 Blood Pressure 144/69 01/25/25 13:03 Pulse Oximetry 96 01/25/25 13:03 Oxygen Delivery Me thod Room Air 01/25/25 13:03 MDM - Dizziness Medical Decision Making Patient presents here with frequent falls been going on for over a year he is well-appearing here labs show no significant abnormalities from his baseline CT head was normal advised him to start walking with a walker he stable for discharge follow-up PCP return if worsening EKG interpreted by me at 1135 normal sinus rhythm heart rate 96 QRS 99 QTc 425 Medical Records I reviewed the patient's medical records. Lab Data I reviewed the patient's lab results. 01/25/25 12:18 01/25/25 12:18 Radiology Impressions Chest X-Ray 01/25/25 11:47 IMPRESSION: Stable chest. No acute cardiopulmonary pathology Head CT 01/25/25 11:53 IMPRESSION: No evidence of acute intracranial pathology. Laboratory Results WBC 5.82 10^3/uL (3.29-11.43) 01/25/25 12:18 RBC 3.73 10^6/uL (3.85-5.65) L 01/25/25 12:18 Hgb 9.10 g/dL (11.27-16.99) L 01/25/25 12:18 Hct 30.7 % (37-53) L 01/25/25 12:18 MCV 82.3 fl (82-101) 01/25/25 12:18 MCH 24.4 pg (27-33) L 01/25/25 12:18 MCHC 29.6 g/dL (30-55) L 01/25/25 12:18 RDW 19.3 % (12.1-15.1) H 01/25/25 12:18 Plt Count 163 10^3/cmm (157-399) 01/25/25 12:18 MPV 8.2 fL (7.4-10.4) 01/25/25 12:18 Neut % (Auto) 70.2 % 01/25/25 12:18 Lymph % (Auto) 16.8 % 01/25/25 12:18 Pope % (Auto) 8.9 % 01/25/25 12:18 Eos % (Auto) 3.1 % 01/25/25 12:18 Baso % (Auto) 0.7 % 01/25/25 12:18 Neut # (Auto) 4.08 10^3/uL (1.8-7.7) 01/25/25 12:18 Lymph # (Auto) 1.0 10^3/uL (0.8-4.8) 01/25/25 12:18 Pope # (Auto) 0.5 10^3/uL (0.2-0.9) 01/25/25 12:18 Eos # (Auto) 0.2 10^3/uL (0.0-0.8) 01/25/25 12:18 Baso # (Auto) 0.0 10^3/uL (0.0-0.1) 01/25/25 12:18 Nucleated RBC % (auto) 0 % 01/25/25 12:18 Nucleated RBCs # 0.0 /100WBC 01/25/25 12:18 Sodium 141 mmol/L (136-145) 01/25/25 12:18 Potassium 4.2 mmol/L (3.5-5.1) 01/25/25 12:18 Chloride 104 mmol/L (98-107) 01/25/25 12:18 Carbon Dioxide 20 mmol/L (22-29) L 01/25/25 12:18 Anion Gap 21.2 (5-19) H 01/25/25 12:18 BUN 14 mg/dL (8-23) 01/25/25 12:18 Creatinine 2.2 mg/dL (0.7-1.2) H 01/25/25 12:18 GFR Calculation 30.4 mL/min (90-130) L 01/25/25 12:18 Glucose 93 mg/dL (65-115) 01/25/25 12:18 Calculated Osmolality 292 mOsm/kg (285-295) 01/25/25 12:18 Calcium 8.2 mg/dL (8.5-10.5) L 01/25/25 12:18 Total Bilirubin 0.4 mg/dL (0.15-1.2) 01/25/25 12:18 AST 29 U/L (0-40) 01/25/25 12:18 ALT 14 U/L (0-41) 01/25/25 12:18 Alkaline Phosphatase 258 U/L (40-130) H 01/25/25 12:18 Total Protein 7.8 g/dL (6.6-8.7) 01/25/25 12:18 Albumin 3.6 g/dL (3.5-5.2) 01/25/25 12:18 Globulin 4.2 g/dL (1.3-4.6) 01/25/25 12:18 TSH 6.97 uIU/mL (0.27-4.20) H 01/25/25 12:18 All radiology interpretation(s) finalized by discharge Discharge Plan Discharge Patient Disposition: Home Clinical Impression: Frequent falls Condition: Stable Prescriptions: No Action indomethacin 50 mg capsule 50 mg PO TID 7 Days Qty: 21 3RF Rx Instructions: administer with food or milk buspirone 15 mg tablet 15 mg PO BID Qty: 60 11RF aripiprazole 10 mg tablet 10 mg PO DAILY Qty: 30 11RF mirtazapine 45 mg tablet 45 mg PO .qhs Qty: 30 11RF amitriptyline 75 mg tablet 75 mg PO DAILY Qty: 30 11RF levofloxacin 750 mg tablet 750 mg PO DAILY Qty: 7 0RF bupropion HCl [Wellbutrin XL] 300 mg tablet extended release 24 hr 300 mg PO QAM Qty: 30 2RF clobetasol 0.05 % cream 1 applic topical BID 14 Days Qty: 120 0RF (DME) pen needle, diabetic [Pentips Pen Needle] 32 gauge x 5/32 needle See Rx Instructions .ROUTE .COMPLEX Qty: 100 0RF Dose Instruction: USE DIRECTED Rx Instructions: USE DIRECTED insulin glargine [Lantus Solostar U-100 Insulin] 100 unit/mL (3 mL) insulin pen 96 unit SUBCUT DAILY 90 Days Qty: 90 1RF (DME) FreeStyle Elida 2 Plus Sensor Device See Rx Instructions .Route Qty: 2 3RF Rx Instructions: As directed gabapentin 600 mg tablet 600 mg PO TID Qty: 90 3RF insulin aspart U-100 100 unit/mL (3 mL) insulin pen 20 unit SUBCUT TID Qty: 15 4RF atorvastatin 10 mg tablet See Rx Instructions .ROUTE .COMPLEX Qty: 90 0RF Dose Instruction: TAKE 1 TABLET BY MOUTH ONCE DAILY FOR CHOLESTEROL Rx Instructions: TAKE 1 TABLET BY MOUTH ONCE DAILY FOR CHOLESTEROL albuterol sulfate 90 mcg/actuation HFA aerosol inhaler 1 inh inhalation QID PRN (Reason: shortness of breath or wheezing) Qty: 8.5 1RF COVID vac 25-26(12up)(Pfi)(PF) 30 mcg/0.3 mL syringe 0.3 ml IM ONCE Qty: 0.3 0RF Jardiance 25 mg tablet See Rx Instructions .ROUTE .COMPLEX Qty: 90 0RF Dose Instruction: TAKE 1 TABLET BY MOUTH IN THE MORNING FOR DIABETES Rx Instructions: TAKE 1 TABLET BY MOUTH IN THE MORNING FOR DIABETES metformin 500 mg tablet See Rx Instructions .ROUTE .COMPLEX Qty: 120 3RF Dose Instruction: Take 1 tablet by mouth twice daily Rx Instructions: Take 1 tablet by mouth twice daily levothyroxine 75 mcg tablet See Rx Instructions .ROUTE .COMPLEX Qty: 45 0RF Dose Instruction: Take 1/2 (one-half) tablet by mouth once daily Rx Instructions: Take 1/2 (one-half) tablet by mouth once daily budesonide-formoterol [Symbicort] 80-4.5 mcg/actuation HFA aerosol inhaler 2 puff inhalation BID Qty: 10.2 0RF omeprazole 40 mg capsule,delayed release(DR/EC) 40 mg PO DAILY PRN (Reason: acid reflux) Qty: 90 1RF Mounjaro 10 mg/0.5 mL pen injector See Rx Instructions .ROUTE .COMPLEX Qty: 4 2RF Dose Instruction: INJECT 10MG SUB-Q ONCE WEEKLY Rx Instructions: INJECT 10MG SUB-Q ONCE WEEKLY (DME) BD SafetyGlide Insulin Syringe 1 mL 31 gauge x 15/64 syringe See Rx Instructions .Route Qty: 100 1RF Rx Instructions: As directed tramadol 50 mg tablet 50 mg PO Q8H PRN (Reason: pain) Qty: 10 0RF Discharge Orders: Discharge ED (Routine); Ordered 01/25/25 Ordered By: Raymond Rascon Referrals: Edwin Rowe MD [Primary Care Provider, Family Practice] - 4-7 days Discharge Diet: Advance as tolerated Discharge Activity: Resume usual activity Patient Instructions: Fall Prevention (ED) Print Language: Malay Coding Level of Care Code ED Mobile Practice Lead for Francisco Javier Hernadez
[2025-01-25 12:23] LABS: Hematocrit 30.7 % (37-53); Hemoglobin 9.10 g/dL (11.27-16.99); Mean Corpuscular HGB Conc 29.6 g/dL (30-55); Mean Corpuscular Hemoglobin 24.4 pg (27-33); Mean Corpuscular Volume 82.3 fl (82-101); Nucleated Red Blood Cells % 0 %; Platelet Count 163 10^3/cmm (157-399); Red Blood Count 3.73 10^6/uL (3.85-5.65); White Blood Count 5.82 10^3/uL (3.29-11.43)
[2025-01-25 12:50] LABS: Alanine Aminotransferase 14 U/L (0-41); Albumin Level 3.6 g/dL (3.5-5.2); Alkaline Phosphatase 258 U/L (40-130); Anion Gap 21.2 (5-19); Aspartate Amino Transferase 29 U/L (0-40); Blood Urea Nitrogen 14 mg/dL (8-23); Calcium 8.2 mg/dL (8.5-10.5); Carbon Dioxide 20 mmol/L (22-29); Chloride 104 mmol/L (98-107); Globulin 4.2 g/dL (1.3-4.6); Glucose 93 mg/dL (65-115); Osmolality Calculated 292 mOsm/kg (285-295); Potassium 4.2 mmol/L (3.5-5.1); Sodium 141 mmol/L (136-145); Thyroid Stimulating Hormone 6.97 uIU/mL (0.27-4.20); Total Protein 7.8 g/dL (6.6-8.7)
[2025-01-25 13:03] VITALS: BP 144/69; PULSE 88; RESP 16; O2SAT 96
[2025-01-25 13:34] VITALS: BP 144/69; PULSE 89; RESP 16; O2SAT 97
== END 2025-01-25 13:30 | disposition home or self-care (01) ==
PROVIDERS: Emergency Provider Emergency Medicine; PCP Family Medicine
DX: R29.6 Repeated falls (principal); Z79.4 Long term (current) use of insulin; Z79.84 Long term (current) use of oral hypoglycemic drugs; E11.22 Type 2 diabetes mellitus with diabetic chronic kidney disease; I12.9 Hypertensive chronic kidney disease with stage 1 through stage 4 chronic kidney disease, or unspecified chronic kidney disease; N18.32 Chronic kidney disease, stage 3b; E78.5 Hyperlipidemia, unspecified
CPT/HCPCS: 36415; 70450; 71045; 80053; 84443; 85025; 93005; 99285